=== PATIENT | male | born 2005 | race Caucasian/White ===

== ENCOUNTER 2024-01-24 07:00 | Emergency (ER) | payer SELFPAY ==
[2024-01-23] MEDS: MORPHINE SULFATE 4 MG/ML INJ (FOR IV/IM USE) IV NR (07:45)
[~2024-01-24] VITALS: Ht 172.7 cm; Wt 64.0 kg
[2024-01-24 07:05] VITALS: O2SAT 98
[2024-01-24] MEDS: PROPOFOL 200MG/20ML VIAL IV PRN (09:42)
[2024-01-24] MEDS: ONDANSETRON HCL 4MG/2ML INJ IV ONE (09:42)
[2024-01-24] MEDS: KETAMINE HCL 50 MG/ML 10ML IV ONE (09:42)
[2024-01-24] MEDS ORDERED: IBUP-2028 PO (10:54)
[2024-01-24 11:20] VITALS: BP 135/80; PULSE 85; RESP 12; TEMP 36.78072; O2SAT 98
== END 2024-01-24 11:20 | disposition home or self-care (01) ==
LOC: ER 07:59
DX: S43.005A Unspecified dislocation of left shoulder joint, initial encounter (principal); S00.81XA Abrasion of other part of head, initial encounter; R51.9 Headache, unspecified; Y04.0XXA Assault by unarmed brawl or fight, initial encounter; Y93.89 Activity, other specified; Y92.89 Other specified places as the place of occurrence of the external cause; Y99.8 Other external cause status
CPT/HCPCS: 73030; 70450; 23650; 96374; 96375; 99152; 99285; J3490; J2405; J2704; J2270; Z7610 ×3; A4565